=== PATIENT | male | born 2000 | race Caucasian/White ===

== ENCOUNTER 2018-12-09 15:12 | Emergency (ER) | payer SELFPAY ==
[~2018-12-09] VITALS: Ht 175.3 cm; Wt 73.2 kg
[2018-12-09 15:19] VITALS: BP 117/65; TEMP 97.9
[2018-12-09 16:04] VITALS: PULSE 61
== END 2018-12-09 16:02 | disposition home or self-care (01) ==
LOC: COL.ER 15:12
DX: H11.33 Conjunctival hemorrhage, bilateral (principal)

== ENCOUNTER 2019-07-22 13:23 | Emergency (ER) | payer SELFPAY ==
[~2019-07-22] VITALS: Ht 177.8 cm; Wt 65.9 kg
[2019-07-22 13:34] VITALS: TEMP 99.4
[2019-07-22 13:53] LABS: BASO # 0.1 (0.0-0.2); BASO % 0.9 % (0.0-2.0); EOS # 0.1 (0.0-0.7); GRAN # 3.5 (1.4-6.5); GRAN % 51.2 % (42.2-75.2); HEMATOCRIT 47.4 % (36.0-47.0); HEMOGLOBIN 16.2 g/dl (12.5-16.1); LYMPH # 2.7 (1.2-3.4); LYMPH % 39.9 % (20.0-51.0); MEAN CELL VOLUME 85 fl (80.0-95.0); MEAN CORPUSCULAR HEMOGLOBIN 29 pg (26.0-32.0); MEAN CORPUSCULAR HGB CONC 34 g/dl (33.0-37.0); MONO # 0.5 (0.1-0.6); MONO % 6.9 % (1.7-9.3); PLATELET COUNT 201 K/mm3 (130-400); RED BLOOD COUNT 5.57 M/mm3 (4.20-5.60); REDCELL DISTRIBUTION WIDTH-CV 12.3 % (11.5-14.5)
[2019-07-22 14:03] LABS: BILIRUBIN,TOTAL 0.9 mg/dL (0.0-1.0); CALCIUM 9.2 mg/dL (8.4-10.2); CREATININE, serum 0.93 (0.66-1.25); POTASSIUM 3.6 mmol/L (3.4-5.0); TOTAL PROTEIN 8.1 gm/dL (6.4-8.2)
[2019-07-22 16:14] VITALS: BP 97/64; PULSE 67
== END 2019-07-22 16:14 | disposition home or self-care (01) ==
LOC: COL.ER 13:23
PROVIDERS: Emergency Medicine
DX: R11.2 Nausea with vomiting, unspecified (principal)
CPT/HCPCS: J2405; J2550; J7030